=== PATIENT | male | born 1975 | race Caucasian/White ===

== ENCOUNTER 2016-06-26 14:44 | Emergency (ER) | payer MEDICAID ==
[2015-11-21 11:18] VITALS: BMI 26.8
[~2016-06-26 14:44] MED LIST: ADDERALL 20 MG20 M1 PO; CLONAZEPAM2 MG/TAB PO; CYCLOBENZAPRINE10 MG PO; EFFEXOR75 MG PO; HYDROCODONE-APA1 TAB PO; KLONOPIN1 MG PO; MINIPRESS1 MG PO; PERCOCET 10/3251 TA1 PO; PRILOSEC20 MG PO; SINEQUAN100 MG PO; VISTARIL50 MG PO
== END 2016-06-26 19:00 | disposition home or self-care (01) ==
LOC: D.ER 14:44
DX: M54.2 Cervicalgia (principal); M54.6 Pain in thoracic spine; M25.511 Pain in right shoulder; W19.XXXA Unspecified fall, initial encounter; Y93.89 Activity, other specified; Y92.018 Other place in single-family (private) house as the place of occurrence of the external cause; F17.200 Nicotine dependence, unspecified, uncomplicated; F32.9 Major depressive disorder, single episode, unspecified; F90.9 Attention-deficit hyperactivity disorder, unspecified type; I10 Essential (primary) hypertension

== ENCOUNTER → 2016-10-29 13:03 | Outpatient (CLI) | payer MEDICAID ==
[2015-11-21 11:18] VITALS: BMI 26.8
== END | disposition home or self-care (01) ==
LOC: D.RAD 13:03
DX: M25.511 Pain in right shoulder (principal)